=== PATIENT | male | born 2000 | race Hispanic/Latino ===

== ENCOUNTER 2018-04-20 08:14 | Inpatient (IN) | payer BC ==
[~2018-04-20] VITALS: Ht 188 cm; Wt 110.7 kg
[2018-04-20 08:35] VITALS: BP 137/71
[2018-04-20 08:45] VITALS: BP 137/71
[2018-04-20 09:00] VITALS: BP 137/71
[2018-04-20] MEDS ORDERED: ONDANSETRON HCL INJ 2 MG/ML VIAL IV PRN (09:00)
[2018-04-20] MEDS: SODIUM CHLORIDE 0.9% 1000ML 1,000 ML IV SCH ×2 (09:25→17:55)
[2018-04-20] MEDS: MORPHINE SULFATE 2 MG/ML SYR IV PRN (09:26)
--- NOTE | 2018-04-20 10:43 | Diagnostic Imaging Report ---
PROCEDURE:X-RAY ABDOMEN - KUB COMPARISON:None. INDICATIONS:KIDNEY STONES RIGHT SIDE FINDINGS: There is a 7 mm calcification overlying the medial aspect of the right kidney likely representing a renal or ureteral stone. There are no dilated loops of bowel to suggest obstruction. There are no masses. There is no evidence of free air. No acute osseous abnormalities are present. CONCLUSION: Right renal lithiasis. Hi Otoole D.O. Dictated by: Hi Otoole D.O. on 04/20/2018 at 10:51 Electronically approved by: Hi Otoole D.O. on 04/20/2018 at 10:51
[2018-04-20] MEDS: CEFTRIAXONE SOD 1 GM VIAL IV SCH (14:51)
[2018-04-20] MEDS ORDERED: ACETAMINOPHEN 325 MG TAB PO PRN (15:00)
[2018-04-20] MEDS ORDERED: HYDROCODONE/APAP 5MG-325MG TAB PO PRN (15:00)
[2018-04-20 16:08] VITALS: BP 116/55
--- NOTE | 2018-04-20 17:20 | Consultation ---
DATE OF CONSULTATION: April 20, 2018 UROLOGY CONSULTATION REASON FOR CONSULTATION: Obstructing ureterolithiasis. HISTORY OF PRESENT ILLNESS: Cleveland Raphael is a 17-year-old man without any previous urological history. He denies hematuria, dysuria, urinary tract infections or urolithiasis. He denies any urological surgery. The patient had severe right-side flank pain radiating to the right lower quadrant and reported to an outlying emergency room where he underwent CT scanning that revealed obstructing urolithiasis. The patient was subsequently admitted via transfer to hospital, and urological consultation was sought. The patient denies hematuria, dysuria, urinary tract infections or urolithiasis. Denies any lower tract obstructive symptoms and denies any lower tract irritative symptoms. PAST MEDICAL AND SURGICAL HISTORY: None. ALLERGIES: NONE KNOWN. MEDICATIONS: Normally none. SOCIAL HISTORY: The patient denies smoking, ethanol or drug use. The patient is a mariee. He has supportive parents at the bedside. REVIEW OF SYSTEMS: As consistent with above history of present illness and past medical history, otherwise negative for all systems. PHYSICAL EXAMINATION GENERAL: A healthy-appearing 17-year-old man lying in bed in no apparent distress. VITAL SIGNS: He is currently afebrile. His vital signs are currently stable. ABDOMEN: Soft, nondistended, nontender without costovertebral angle tenderness. Kidneys are not palpable, without hepatosplenomegaly. No obvious evidence of hernia. GENITOURINARY: Testes descended bilaterally. Testes and epididymides bilaterally palpably normal. The patient has a normal uncircumcised male phallus with normal meatus without any lesion. DIGITAL RECTAL EXAMINATION: Deferred at the present time. For the remaining physical examination and systems, please refer to the admission history and physical on the chart. LABORATORY STUDIES: KUB performed under my direction revealed a 7 mm calcification in the region of the right upper ureter. The patient's creatinine is 1.2. White blood cell count is 12,600 and hemoglobin 15.2, platelets 276,000. DIAGNOSTICS: CT scan of the abdomen and pelvis revealed a 7 mm stone in the proximal right ureter with moderate right hydronephrosis. No other abnormalities were noted. ASSESSMENT 1. Large right ureteral stone. 2. Right hydroureteronephrosis. 3. Leukocytosis. 4. Renal colic. PLAN 1. Stone passage trial. 2. If fails stone passage trial, will take the patient to the operating room to manage his stone. 3. Make sure the patient is on IV antibiotics, and we are straining the urine. Thank you very much for involving us in the care of your patient. We will be happy to follow him along with you as well as an outpatient. Job#: [id number] EV
--- NOTE | 2018-04-20 17:37 | History and Physical ---
CHIEF COMPLAINT: Right-sided flank pain. HISTORY OF PRESENT ILLNESS: This is a 17-year-old male with no past medical history, who comes into the ED, outside emergency room, with complaints of right-sided flank pain that began early this morning around 2 a.m. Patient states that he was asleep and just suddenly began to have severe right-sided flank pain. He initially thought that he was having severe abdominal pain, but the pain got so severe he went to a local ER at a freestanding and was found to have a right ureter 7 mm obstructing stone with some mild to moderate hydronephrosis. Patient also had a significant amount of stool in his colon as per imaging. Patient was then sent to [facility] for higher level of care and evaluation by Urology. Patient denies any hematuria or any complaints at this time. Patient seen and evaluated at bedside on the medical floor, currently doing well with no other issues. REVIEW OF SYSTEMS PERTINENT POSITIVE: Right-sided flank pain. PERTINENT NEGATIVE: Denies any chest pain, palpitations, nausea, vomiting, diarrhea, dysuria, hematuria, frequency, urgency, lightheadedness, dizziness, abdominal pain, headache, shortness of breath, cough, congestion, fever or any other complaints. REST OF 14-POINT REVIEW OF SYSTEMS: Have been reviewed with the patient and are negative. ALLERGIES: NO KNOWN DRUG ALLERGIES. HOME MEDICATIONS: None. PAST MEDICAL HISTORY: None. SURGICAL HISTORY: None. FAMILY HISTORY: Hypertension, diabetes. SOCIAL HISTORY: Denies drugs, alcohol, or any smoking history. Good social support. He lives with his parents. VITAL SIGNS: Temperature is 97.7, pulse 73, respiratory rate is 20, blood pressure 137/71, pulse ox 100% on room air. LAB FINDINGS: White count 12.6, hemoglobin 15.2, hematocrit is 45.2, platelets of 276. Urinalysis shows moderate amount of blood. CHEMISTRY: Sodium 139, potassium 3.8, chloride is 104, bicarb 25, glucose 129, calcium is 10.3, BUN is 14, creatinine is 1.2. ALT is 30, AST is 38, total bilirubin is 0.7. Albumin is 4.2. IMAGING: CT renal stone protocol shows evidence of a 7 mm stone in the proximal right ureter with moderate right hydronephrosis. Moderate colonic stool throughout. Correlate with constipation. PHYSICAL EXAMINATION GENERAL: Not in acute distress. Alert, oriented x3, cooperative on examination. HEENT: Head: Normocephalic, atraumatic. Eyes: Pupils equally round and reactive to light bilaterally. Extraocular movements intact bilaterally. Neck was supple with good range of motion. Throat: No evidence of any erythema or exudates in the posterior pharynx. Has poor dentition. PULMONARY: Clear to auscultation bilaterally. No wheezing, no rales, no rhonchi, no crackles appreciated. CARDIOVASCULAR: Positive S1/S2. No murmurs, rubs or gallops appreciated. ABDOMEN: Soft, nondistended, nontender to palpation. Bowel sounds present. MUSCULOSKELETAL: Strength is 5/5 throughout. No evidence of any musculoskeletal deficit on examination. No weakness appreciated. NEUROLOGICAL: Cranial nerves 2-12 grossly intact. No evidence of any neurological deficit on exam. SKIN: Intact. Warm to touch. Good capillary refill. PSYCHIATRIC: Normal affect and mood. EXTREMITIES: No edema. Good range of motion throughout. IMPRESSION 1. Moderate right hydronephrosis secondary to a proximal ureteral stone obstruction. 2. Severe pain. 3. Constipation. PLAN: Urology was consulted. Patient was n.p.o., and now he is eating and the plan may be just more of the stones will be removed unless it is actually relieved spontaneously. Continue with pain control, antinausea medication, IV fluids. Resume same home medications. Await final urology recommendations. Will continue to follow very closely. Get a.m. labs. Job#: [id number] INES
[2018-04-20 20:00] VITALS: BP 121/55
[2018-04-21] VITALS (7 sets, daily range): BP systolic 109–157; BP diastolic 55–87
[2018-04-21 05:11] LABS: BASOPHILS # (AUTO) 0.1 (0.0-0.1); BASOPHILS % 0.6 % (0.0-1.0); EOSINOPHILS # (AUTO) 0.6 (0.0-0.4); EOSINOPHILS % 6.2 % (0.0-6.0); HEMOGLOBIN 13.5 g/dL (14.0-18.0); LYMPHOCYTES # (AUTO) 2.3 (1.0-3.2); LYMPHOCYTES % 24.3 % (18.0-39.1); MEAN CORPUSCULAR HEMOGLOBIN 28.7 pg (28-32); MEAN CORPUSCULAR HGB CONC 34.6 g/dL (31-35); MONOCYTES # (AUTO) 0.7 (0.2-0.8); MONOCYTES % 7.5 % (4.4-11.3); NEUTROPHILS # (AUTO) 5.7 (2.1-6.9); PLATELET COUNT 212 x10e3/uL (140-360); RED CELL DISTRIBUTION WIDTH 13.2 % (11.7-14.4)
[2018-04-21] MEDS: SODIUM CHLORIDE 0.9% 1000ML 1,000 ML IV SCH ×2 (05:24→15:58)
[2018-04-21 05:32] LABS: BLOOD UREA NITROGEN 15 mg/dL (7-26); BUN/CREATININE RATIO 12 (6-25); CALCIUM 9.5 mg/dL (8.4-10.2); CARBON DIOXIDE 24 mmol/L (22-29); CHLORIDE 106 mmol/L (98-107); CREATININE, SERUM 1.26 mg/dL (0.72-1.25); EST GLOMERULAR FILTRATION RATE > 60 ML/MIN (60-); GLUCOSE 105 mg/dL (74-118); SODIUM 136 mmol/L (136-145)
--- NOTE | 2018-04-21 09:36 | Diagnostic Imaging Report ---
PROCEDURE:X-RAY ABDOMEN - KUB COMPARISON:KUB 04/20/18. INDICATIONS:CALCULUS OF KIDNEY FINDINGS: There is a 7 mm calcification overlying the medial aspect of the right kidney, just superior to the right L3 transverse process, likely representing a renal or ureteral stone. Non obstructive bowel gas pattern. There is no evidence of free air. No acute osseous abnormalities are present. CONCLUSION: Similar appearance of 7 mm right renal or proximal ureteral stone. Dictated by: MÓNICA TURK M.D. on 04/21/2018 at 9:44 Electronically approved by: MÓNICA TURK M.D. on 04/21/2018 at 9:44
--- NOTE | 2018-04-21 10:32 | Progress Note ---
DATE: April 21, 2018 SUBJECTIVE: Patient's pain is well controlled with no issues at this time. He denies any flank pain. He is still on IV antibiotics. He did receive an x-ray this morning to evaluate for any movement of the right ureteral stone. OBJECTIVE VITALS: Temperature is 97.9, pulse 84, respiratory rate 17, blood pressure 109/72, pulse ox 98% on room air. GENERAL: Not in acute distress. Alert and oriented times 3. Cooperative on examination. HEENT: Head is normocephalic and atraumatic. Eyes: Pupils equal, round and reactive to light bilaterally. Extraocular movements intact bilaterally. NECK: Supple. Good range of motion. Throat with no evidence of any erythema or exudates in the posterior pharynx. Has poor dentition. PULMONARY: Clear to auscultation bilaterally. No wheezing. No rales. No rhonchi. No crackles appreciated. CARDIOVASCULAR: Positive S1 and S2. No murmurs, rubs or gallops appreciated. ABDOMEN: Soft, nondistended and nontender to palpation. Bowel sounds present. MUSCULOSKELETAL: Strength is 5/5 throughout. No evidence of any muscle deficit on examination. No weakness appreciated. NEUROLOGICAL: Cranial nerves II-XII are grossly intact. No evidence of any neurological deficits on exam. SKIN: Intact. Warm to touch. Good cap refill. PSYCHIATRIC: Normal affect and mood. EXTREMITIES: No edema. Good range of motion throughout. LAB FINDINGS: Show white count 9.4, hemoglobin is 13.5, hematocrit is 39, and platelets of 212,000. Chemistry: Sodium 136, potassium 4, chloride 106, bicarb 24, anion gap of 10, BUN is 15, creatinine is 1.26. Uric acid 6.6. Calcium 9.5. Intact PTH is pending. IMAGING STUDIES: Abdominal x-ray performed this morning showed similar appearance of the 7 mm renal or proximal ureteral stent. IMPRESSION 1. Moderate right hydronephrosis secondary to a 7 mm proximal ureteral stone obstruction. 2. Severe pain. 3. Constipation. PLAN: Abdominal x-ray was performed this morning. It shows that the position of the stone is still present with no movement. Urologist consulted and following accordingly. He already ate breakfast from this morning. He has pain control, IV antibiotics. Urine culture shows no growth. Will continue to follow with urology on this case. The patient will likely need to have the stone removed possibly later this week. Otherwise, labs are stable. Will continue to follow. Job#: [id number] RI
[2018-04-21] MEDS: CEFTRIAXONE SOD 1 GM VIAL IV SCH (13:31)
[2018-04-22] VITALS (7 sets, daily range): BP systolic 89–137; BP diastolic 53–88
[2018-04-22] MEDS: SODIUM CHLORIDE 0.9% 1000ML 1,000 ML IV SCH ×2 (03:23→16:09)
[2018-04-22] MEDS: CEFTRIAXONE SOD 1 GM VIAL IV SCH (13:30)
[2018-04-22] MEDS ORDERED: MIDAZOLAM HCL 2 MG/2 ML VIAL ONE (15:55)
[2018-04-22] MEDS ORDERED: FENTANYL CITRATE/PF 100MCG/2 ML INJ ONE (15:55)
[2018-04-22] MEDS: OXYBUTYNIN CHLORIDE 5 MG TAB PO SCH ×2 (15:58→20:46)
[2018-04-22] MEDS: MORPHINE SULFATE 2 MG/ML SYR IV PRN (16:09)
[2018-04-22] MEDS ORDERED: DOCUSATE SODIUM 100 MG CAP PO PRN (16:15)
[2018-04-22] MEDS ORDERED: DEXAMETHASONE SOD PHOS INJ 4 MG/ML VIAL ONE (17:53)
[2018-04-22] MEDS ORDERED: ONDANSETRON HCL INJ 2 MG/ML VIAL ONE (17:53)
[2018-04-22] MEDS ORDERED: PROPOFOL IV EMULSION 10 MG/ML 20 ML VIAL ONE (17:53)
[2018-04-22] MEDS ORDERED: SEVOFLURANE INHAL SOLN 250 ML PEN BTL ONE (17:53)
[2018-04-22] MEDS ORDERED: LIDOCAINE HCL 2% LOCAL INJ 5 ML SDV VIAL INJ ONE (17:53)
[2018-04-22] MEDS: PHENAZOPYRIDINE HCL 100 MG TAB PO SCH (17:55)
--- NOTE | 2018-04-22 23:57 | Progress Note ---
DATE: April 22, 2018 MEDICINE PROGRESS NOTE SUBJECTIVE: Patient is doing well today. He is scheduled to have a cystoscopy with stone retrieval later today. OBJECTIVE VITALS: Stable. Normotensive. Respiratory rate is normal. Afebrile. GENERAL: Not in acute distress. Alert, oriented x3. Cooperative on examination. HEENT: Head is normocephalic, atraumatic. Eyes: Pupils equal, round, and reactive to light bilaterally. Extraocular movements intact bilaterally. NECK: Supple. Good range of motion. Throat with no evidence of any erythema or exudates in the posterior pharynx. Has poor dentition. PULMONARY: Clear to auscultation bilaterally. No wheezing, no rales, no rhonchi, no crackles appreciated. CARDIOVASCULAR: Positive S1, S2. No murmurs, rubs or gallops appreciated. ABDOMEN: Soft, nondistended, nontender to palpation. Bowel sounds present. MUSCULOSKELETAL: Strength is 5/5 throughout. No evidence of any muscle deficit on examination. No weakness appreciated. NEUROLOGICAL: Cranial nerves II-XII are grossly intact. No evidence of any neurological deficits on exam. SKIN: Intact. Warm to touch. Good cap refill. PSYCHIATRIC: Normal affect and mood. EXTREMITIES: No edema. Good range of motion throughout. LABS: Reviewed and stable. IMPRESSIONS 1. Right ureteral obstructing nephrolithiasis. 2. Right flank pain. 3. Concern for urinary tract infection. PLAN: Patient is scheduled for cystoscopy for stone retrieval later today by Dr. Cordova, urology. Continue with IV antibiotics. Pain control. N.p.o. for now. Resume diet after procedure. Possibly discharge home later today if cleared by urology. Job#: [id number] CQ
[2018-04-23] VITALS: BP 105/50
[2018-04-23 04:00] VITALS: BP 124/73
[2018-04-23 05:48] LABS: BASOPHILS % 0.3 % (0.0-1.0); EOSINOPHILS # (AUTO) 0.1 (0.0-0.4); EOSINOPHILS % 0.8 % (0.0-6.0); HEMATOCRIT 40.4 % (38.2-49.6); LYMPHOCYTES # (AUTO) 1.7 (1.0-3.2); LYMPHOCYTES % 12.6 % (18.0-39.1); MEAN CORPUSCULAR HEMOGLOBIN 28.5 pg (28-32); MEAN CORPUSCULAR HGB CONC 34.7 g/dL (31-35); MEAN CORPUSCULAR VOLUME 82.3 fL (81-99); MONOCYTES # (AUTO) 0.8 (0.2-0.8); MONOCYTES % 6.1 % (4.4-11.3); NEUTROPHILS % 79.7 % (38.7-80.0); PLATELET COUNT 246 x10e3/uL (140-360); RED BLOOD COUNT 4.91 x10e6/uL (4.3-5.7); RED CELL DISTRIBUTION WIDTH 12.4 % (11.7-14.4)
[2018-04-23 06:04] LABS: ANION GAP 10.9 mmol/L (8-16); BLOOD UREA NITROGEN 13 mg/dL (7-26); BUN/CREATININE RATIO 13 (6-25); CALCIUM 9.7 mg/dL (8.4-10.2); CARBON DIOXIDE 23 mmol/L (22-29); CHLORIDE 104 mmol/L (98-107); CREATININE, SERUM 0.99 mg/dL (0.72-1.25); EST GLOMERULAR FILTRATION RATE > 60 ML/MIN (60-); GLUCOSE 123 mg/dL (74-118); POTASSIUM 3.9 mmol/L (3.5-5.1); SODIUM 134 mmol/L (136-145)
[2018-04-23 07:30] VITALS: BP 112/70
[2018-04-23 08:20] VITALS: BP 112/70
[2018-04-23] MEDS: PHENAZOPYRIDINE HCL 100 MG TAB PO SCH (09:34)
[2018-04-23] MEDS: OXYBUTYNIN CHLORIDE 5 MG TAB PO SCH (09:34)
[2018-04-23] MEDS ORDERED: TYLENOL WITH C1 EACH PO (09:49)
[2018-04-23] MEDS ORDERED: DITROPAN XL5 MG PO (09:49)
[2018-04-23] MEDS ORDERED: PYRIDIUM100 MG PO (09:49)
--- NOTE | 2018-04-23 14:04 | Discharge Summary ---
DISCHARGE DIAGNOSES 1. Right renal stone status post right ureteral stent placement with lithotripsy. 2. Right flank pain, resolved. 3. Urinary tract infection. CONSULTANTS: Urology. VITAL SIGNS: Temperature is 97.6, pulse 71, respiratory rate is 20, blood pressure 112/70, pulse ox 100% on room air. LAB FINDINGS: Show white count slightly elevated at 13.7, hemoglobin 14, hematocrit is 40, platelets of 246. CHEMISTRY: Sodium is 134, potassium is 3.9, chloride 104, bicarb is 23, anion gap of 10, BUN is 13, creatinine is 0.99, glucose 123. MICROBIOLOGY: None. IMAGING STUDIES: Abdominal x-ray shows a 7 mm right renal or proximal ureteral stone. HOSPITAL COURSE: This is a 17-year-old male who came in as a direct admission from an outside ER due to right flank pain and was found to have a 7 mm right renal stone. Patient was admitted for further evaluation. He was on pain control and IV antibiotics. Urology was consulted, in which the patient underwent a status post cystoscopy with ureteral stent placement on the right side with lithotripsy performed on April 22, 2018, by Dr. Cordova. Patient did well postprocedurally with no other issues. Patient was advised to follow up in 1 to 2 weeks in his office for ureteral stent removal as well as continue lithotripsy on the right nephrolithiasis. Patient otherwise was doing well with no other complaints. Patient continued on IV antibiotics and pain control. On the day of discharge vital signs stable, labs reviewed and stable. Patient seen and evaluated and examined thoroughly on the day of discharge with no new complaints. Patient verbalized understanding and agreed with the plan of care, to follow up accordingly as an outpatient with the primary care physician in 1 week and the urologist in 1 to 2 weeks. DISCHARGE MEDICATIONS: See med reconciliation form including Tylenol with Codeine, Cipro and Ditropan. DISPOSITION: Home. CONDITION: Stable. DIET: Heart healthy. In the event of any worsening symptoms, the patient advised to come back to the ED for further evaluation. Discharge summary took greater than 35 minutes. MEE HOYT MD Job#: [id number] INES
--- NOTE | 2018-06-07 23:09 | Operative Report ---
DATE OF PROCEDURE: April 22, 2018 PREOPERATIVE DIAGNOSES: 1. Right ureterolithiasis. 2. Right hydronephrosis due to stone. 3. Acute renal failure. POSTOPERATIVE DIAGNOSES: 1. Right ureterolithiasis. 2. Right hydronephrosis due to stone. 3. Acute renal failure. OPERATIONS PERFORMED: Note these are all staged procedures as part of a multistage, multistep process of managing the patient's urolithiasis. 1. Right extracorporeal shock wave lithotripsy (separate procedure performed for the right urolithiasis). 2. Cystourethroscopy with bilateral ureteral catheterization and retrograde ureteropyelography (separate procedure performed for the acute renal failure). 3. Interpretation of retrograde ureteropyelography. 4. Supervision of fluoroscopy, no radiologist present. 5. Cystourethroscopy with insertion of right indwelling ureteral stent (separate procedure performed for the hydronephrosis). ANESTHESIA: General. COMPLICATIONS: None. CLINICAL SUMMARY: Please refer to consultation dictation from the same hospitalization. OPERATIVE PROCEDURE IN DETAIL: Informed consent was verified. Cleveland Raphael was properly identified, taken to the operating room, and placed on the lithotripsy table in a supine position. Anesthesia was uneventfully begun. The patient's obstructing right ureterolithiasis was localized with biplanar fluoroscopy. Total of 3000 shocks were delivered with fragmentation of the 7-mm stone. The patient was then carefully and gently repositioned in dorsal lithotomy position with all pressure points well padded. His genitalia were prepared and draped in usual sterile fashion. The 22.5-Maori cystoscope sheath with the visual obturator in place was atraumatically inserted into patient's urethra. It was guided down the normal distal urethra, past the normal sphincteric bed, through the prostate bed that was normal, and into the patient's bladder where panendoscopy revealed normally positioned and configured ureteral orifices that were identified. A ureteral catheter was used to cannulate each ureter, and retrograde ureteral pyelograms were performed. With cystoscopic and fluoroscopic guidance, a right-sided indwelling ureteral stent was then placed. It was coiled in patient's kidney as well as patient's bladder. The retaining suture was cut short. Interpretation of retrograde ureteropyelography: Contrast was instilled in retrograde fashion bilaterally. The left side was unremarkable. There were no tumors, no stones, and no diverticula. Unobstructed drainage was observed fluoroscopically. The right hand side exhibited hydronephrosis to level of the patient's stone. The stent was in good position, coiled in patient's kidney as well as patient's bladder at the end of the case. The patient's bladder was drained, the cystoscope was withdrawn, and the patient was uneventfully reversed from anesthesia and taken to recovery room in stable condition. Explicit postop instructions were given, and will return the patient to the operating room to remove his stent, perform a right ureteroscopy, and hopefully render the patient stent-free and stone-free. Job#: [id number]
== END 2018-04-23 10:20 | disposition home or self-care (01) | DRG 660 ==
LOC: MED/SURG3 08:14
PROVIDERS: ADMIT Internal Medicine; ATTEND Internal Medicine
PROC: BT141ZZ Fluoroscopy of Kidneys, Ureters and Bladder using Low Osmolar Contrast (ICD-10-PCS; 2018-04-22)
PROC: 0T788ZZ Dilation of Bilateral Ureters, Via Natural or Artificial Opening Endoscopic (ICD-10-PCS; 2018-04-22)
PROC: 0T768DZ Dilation of Right Ureter with Intraluminal Device, Via Natural or Artificial Opening Endoscopic (ICD-10-PCS; principal; 2018-04-22 11:30)
PROC: 0TC68ZZ Extirpation of Matter from Right Ureter, Via Natural or Artificial Opening Endoscopic (ICD-10-PCS; 2018-04-22 11:30)
DX: N13.2 Hydronephrosis with renal and ureteral calculous obstruction (principal); E87.1 Hypo-osmolality and hyponatremia; N39.0 Urinary tract infection, site not specified; N17.9 Acute kidney failure, unspecified; K59.00 Constipation, unspecified
CPT/HCPCS: 36415; 50590; 74018; 80048; 83970; 84550; 85025; 96361; C2617; J0696; J1100; J2001; J2250; J2270; J2405; J7030

== ENCOUNTER 2018-04-28 16:43 | Emergency (ER) | payer BC ==
[~2018-04-28] VITALS: Ht 188 cm; Wt 110.7 kg
[~2018-04-28 16:43] MED LIST: DITROPAN XL5 MG PO; PYRIDIUM100 MG PO; TYLENOL WITH C1 EACH PO
--- OUTSIDE RECORDS SUMMARY | 2018-04-28 16:47 | XMS REPORT ---
Author Author [facility] Address Unknown Phone Unavailable Care Team Providers Care Patient Representative Name Role Phone Rogelio HOYT Unavailable Unavailable Problems This patient has no known problems. Allergies, Adverse Reactions, Alerts This patient has no known allergies or adverse reactions. Medications This patient has no known medications. Results Test Description Test Time Test Comments Text Results Atomic Results Result Comments ABDOMEN-1VIEW (KUB) 2018-04-21 09:44:00 [place] [address] Patient Name: JM OVERTON MR #: [id number] : 2000 Age/Sex: 17/M Req #: [id number] Adm Physician: MEE HOYT MD Ordered by: LEONIDAS MCCLURE MD Report #: [id number] Location: MED/SURG3 Room/Bed: [facility]– [place] Procedure: [id number] DX/ABDOMEN-1VIEW (KUB) Exam Date: 04/21/18 Exam Time: 0900 REPORT STATUS: Signed PROCEDURE: X-RAY ABDOMEN - KUB COMPARISON: KUB 04/20/18. INDICATIONS: CALCULUS OF KIDNEY FINDINGS: There is a 7 mm calcification overlying the medial aspect of the right kidney, just superior to the right L3 transverse process, likely representing a renal or ureteral stone. Non obstructive bowel gas pattern. There is no evidence of free air. No acute osseous abnormalities are present. CONCLUSION: Similar appearance of 7 mm right renal or proximal ureteral stone. Dictated by: MÓNICA TURK M.D. on 04/21/2018 at 9:44 Electronically approved by: MÓNICA TURK M.D. on 04/21/2018 at 9:44 Dictated By: MÓNICA TURK MD 3 Transcribed By: MARY on 04/21/18943 COPY TO: LEONIDAS MCCLURE MD ABDOMEN-1VIEW (KUB) 2018-04-20 10:51:00 [place] [address] Patient Name: JM OVERTON MR #: [id number] : 2000 Age/Sex: 17/M Req #: [id number] Adm Physician: MEE HOYT MD Ordered by: LEONIDAS MCCLURE MD Report #: [id number] Location: [facility] Room/Bed: [facility] [place] Procedure: [id number] DX/ABDOMEN-1VIEW (KUB) Exam Date: 04/20/18 Exam Time: 929 REPORT STATUS: Signed PROCEDURE: X-RAY ABDOMEN - KUB COMPARISON: None. INDICATIONS: KIDNEY STONES RIGHT SIDE FINDINGS: There is a 7 mm calcification overlying the medial aspect of the right kidney likely representing a renal or ureteral stone. There are no dilated loops of bowel to suggest obstruction. There are no masses. There is no evidence of free air. No acute osseous abnormalities are present. CONCLUSION: Right renal lithiasis. Darron Otoole D.O. Dictated by: Darron Otoole D.O. on 04/20/2018 at 10:51 Electronically approved by: Darron Otoole D.O. on 04/20/2018 at 10:51 Dictated By: DARRON OTOOLE DO 1051 Transcribed By: MARY on 04/20/18 1051 COPY TO: LEONIDAS MCCLURE MD
[2018-04-28] MEDS ORDERED: MORPHINE SULFATE INJ 4 MG/ML INJ IV STA (16:59)
[2018-04-28] MEDS ORDERED: SODIUM CHLORIDE 0.9% 1000ML 1,000 ML IV SCH (17:00)
[2018-04-28 18:07] LABS: BASOPHILS # (AUTO) 0.1 (0.0-0.1); BASOPHILS % 0.6 % (0.0-1.0); EOSINOPHILS # (AUTO) 0.6 (0.0-0.4); HEMATOCRIT 44.1 % (38.2-49.6); HEMOGLOBIN 15.4 g/dL (14.0-18.0); LYMPHOCYTES # (AUTO) 2.3 (1.0-3.2); LYMPHOCYTES % 20.3 % (18.0-39.1); MEAN CORPUSCULAR HEMOGLOBIN 28.7 pg (28-32); MEAN CORPUSCULAR HGB CONC 34.9 g/dL (31-35); MEAN CORPUSCULAR VOLUME 82.3 fL (81-99); MONOCYTES % 8.5 % (4.4-11.3); NEUTROPHILS # (AUTO) 7.4 (2.1-6.9); NEUTROPHILS % 64.8 % (38.7-80.0); PLATELET COUNT 281 x10e3/uL (140-360); RED BLOOD COUNT 5.36 x10e6/uL (4.3-5.7); RED CELL DISTRIBUTION WIDTH 12.7 % (11.7-14.4)
[2018-04-28 18:19] LABS: ANION GAP 13.8 mmol/L (8-16); BLOOD UREA NITROGEN 12 mg/dL (7-26); BUN/CREATININE RATIO 10 (6-25); CALCIUM 10.9 mg/dL (8.4-10.2); CARBON DIOXIDE 26 mmol/L (22-29); CHLORIDE 97 mmol/L (98-107); CREATININE, SERUM 1.16 mg/dL (0.72-1.25); EST GLOMERULAR FILTRATION RATE > 60 ML/MIN (60-); GLUCOSE 90 mg/dL (74-118); POTASSIUM 3.8 mmol/L (3.5-5.1); SODIUM 133 mmol/L (136-145)
[2018-04-28 18:31] LABS: BILIRUBIN,URINE NEGATIVE (NEGATIVE); CLARITY,URINE HAZY (CLEAR); COLOR,URINE RED (YELLOW); KETONES,URINE NEGATIVE (NEGATIVE); LEUKOCYTE ESTERASE ,URINE TRACE (NEGATIVE); NITRITE,URINE NEGATIVE (NEGATIVE); PROTEIN,URINE DIPSTICK 2+ (NEGATIVE); URINE UROBILINOGEN 0.2 mg/dL (0.2 - 1)
[2018-04-28 18:38] LABS: RBC,URINE 21-50 /HPF (0-5)
--- NOTE | 2018-04-28 18:57 | Diagnostic Imaging Report ---
Exam: Abdominal film Clinical History: Blood in urine status post lithotripsy Comparison: KUB 04/21/2018 DISCUSSION: Frontal view of the abdomen shows a nonobstructive bowel gas pattern with minimal amount of retained stool.There are no dilated, air-filled loops of bowel. Interval placement of right double-J internal ureteral stent. Ill-defined 7 mm calcific density projecting in the mid aspect of the right stent, over the right transverse process of L3, likely representing the previously visualized ureteral calculus. No other calcifications project over the renal shadows or expected course of the ureters or bladder. No acute bone abnormality. IMPRESSION: 1. 0.7 cm right mid ureteral calculus. Interval placement of right-sided double-J internal ureteral stent. The staff physician below has personally reviewed this exam on the date of dictation. Signed by: Dr. Morales Vang M.D. on 04/28/2018 6:54 PM
== END 2018-04-28 21:30 | disposition home or self-care (01) ==
LOC: ER 16:43
DX: R30.0 Dysuria (principal); R31.0 Gross hematuria; R11.0 Nausea; R10.9 Unspecified abdominal pain
CPT/HCPCS: 36415; 74018; 80048; 81001; 85025; 87086; 99284; J7030; J2270